=== PATIENT | female | born 1990 | race American Indian/Alaskan Native ===

== ENCOUNTER 2016-06-10 19:25 | Emergency (ER) | payer MEDICAID ==
[2016-06-10 19:48] VITALS: BP 136/81
--- NOTE | 2016-06-10 20:32 | Emergency Department Report ---
Chief Complaint: Vaginal Bleeding Stated Complaint: VAG DISCHARGE/SPOTTING/12WKS PREG Time Seen by Provider: 06/10/16 20:32 - HPI History of Present Illness: Patient here reports that she is 12 weeks and having vaginal spotting 2 weeks. She says she's having orange color collared vaginal discharge started this evening. Abdominal pain is one of the tendon located in her pelvic area. She says she called her [facility] which is Dr. Molina and was told to come to the emergency room. Menstrual period was 10.4 2016. [place] any nausea or vomiting. He reports lower abdominal pain started this evening. Denies any urinary burning but reports frequency. She says she has ultrasound in April at her [facility] and everything was fine. She says she was also diagnosed with Macrobid and she has not been taking it on a regular basis. - ROS Review of Systems: All systems are negative unless stated in HPI above. - Exam Vital Signs: Vital Signs 06/10/16 19:41 Temperature 98.6 F Pulse Rate 117 H Respiratory 20 Rate Blood Pressure 136/81 O2 Sat by Pulse 97 Oximetry Physical Exam: General: This is a 25-year-old female well-nourished well-developed in no acute distress. Abdomen: Tender to palpate the pelvic area. No guarding or rebound tenderness. Normal bowel sounds in all quadrants. CV: S1, S2. Tachycardic at 117. MSE screening note: Focused history and physical exam performed. Due to findings the following was ordered:see mdm ED Medical Decision Making - Medical Decision Making Medical decision making: Patient seen by provider in triage area. Appropriate protocol activated and patient to main ED to be seen by physician. ED Disposition for MSE Condition: Stable
[2016-06-10 21:42] LABS: Basophils % (Auto) 0.2 % (0.0-1.8); Eosinophils % (Auto) 0.7 % (0.0-4.3); Hematocrit 39.2 % (30.3-42.9); Hemoglobin 13.1 gm/dl (10.1-14.3); Mean Corpuscular HGB Conc 33 % (30-34); Mean Corpuscular Hemoglobin 30 pg (28-32); Mean Corpuscular Volume 90 fl (79-97); Platelet Count 224 K/mm3 (140-440); Red Blood Count 4.36 M/mm3 (3.65-5.03); Red Cell Distribution Width 13.1 % (13.2-15.2)
[2016-06-10 23:07] LABS: Bacteria,Urine 1+ /HPF (Negative); Bilirubin,Urine NEG (Negative); Blood,Urine SM (Negative); Ketones,Urine 80 mg/dL (Negative); Leukocyte Esterase,Urine LG (Negative); Mucus,Urine 3+ /HPF; Nitrite,Urine NEG (Negative); Urobilinogen,Urine < 2.0 mg/dL (<2.0)
--- NOTE | 2016-06-11 01:03 | Ultrasound Report ---
FINAL REPORT PROCEDURE: US OB < = 14 WEEKS FETUS TECHNIQUE: Real-time transabdominal sonography of the uterus, placenta, amniotic fluid, adnexa, and fetus was performed with image documentation. Measurements were obtained to determine age/size. M-mode Doppler was used to document heartbeat. CPT 95472 HISTORY: vaginal bleeding and abdominal pain COMPARISON: No prior studies are available for comparison. FINDINGS: CRL: 61.1 mm, which corresponds to a gestational age of: 12 weeks, 4 days. Yolk Sac: Normal. Embryonic Cardiac Activity: 153 beats per minute Gestational Sac: Normal. There is a subchorionic hematoma measuring 17 by 10 x 7 millimeters. Amniotic fluid: Normal. Cervix: Normal. Right Ovary: There is 18 millimeter cyst. Left Ovary: Not identified. Estimated delivery date: 12/20/2016 Uterus and adnexa: Normal. IMPRESSION: Single live intrauterine gestation at approximately 12 weeks and 4 days. EDC by US 12/20/2016
--- NOTE | 2016-06-11 01:04 | Ultrasound Report ---
FINAL REPORT PROCEDURE: US OB transvaginal TECHNIQUE: Real-time transvaginal sonography of the uterus, placenta, amniotic fluid, adnexa, and fetus was performed with image documentation. Measurements were obtained to determine age/size. M-mode Doppler was used to document heartbeat. HISTORY: vaginal bleeding and abdominal pain COMPARISON: No prior studies are available for comparison. FINDINGS: CRL: 61.1 mm, which corresponds to a gestational age of: 12 weeks, 4 days. Yolk Sac: Normal. Embryonic Cardiac Activity: 153 beats per minute Gestational Sac: Normal. There is a subchorionic hematoma measuring 17 by 10 x 7 millimeters. Amniotic fluid: Normal. Cervix: Normal. Right Ovary: There is 18 millimeter cyst. Left Ovary: Not identified. Estimated delivery date: 12/20/2016 Uterus and adnexa: Normal. IMPRESSION: Single live intrauterine gestation at approximately 12 weeks and 4 days. EDC by US 12/20/2016
--- NOTE | 2016-06-11 17:51 | ED Elopement Review ---
ED Pt Elopement review - Results review Lab results: Laboratory Tests 06/10/16 06/10/16 06/10/16 20:56 20:56 20:56 WBC 12.0 H RBC 4.36 Hgb 13.1 Hct 39.2 MCV 90 MCH 30 MCHC 33 RDW 13.1 L Plt Count 224 Lymph % (Auto) 24.2 [place] % (Auto) 5.4 Eos % (Auto) 0.7 Baso % (Auto) 0.2 Lymph # 2.9 [place] # 0.6 Eos # 0.1 Baso # 0.0 Seg Neutrophils % 69.5 Seg Neutrophils # 8.4 H HCG, Quant [id number] H Urine Color Urine Turbidity Urine pH Ur Specific [place] Urine Protein Urine Glucose (UA) Urine Ketones Urine Blood Urine Nitrite Urine Bilirubin Urine Urobilinogen Ur Leukocyte Esterase Urine WBC (Auto) Urine RBC (Auto) U Epithel Cells (Auto) Urine Bacteria (Auto) Urine Mucus Blood Type A POSITIVE Antibody Screen Negative 06/10/16 21:55 WBC RBC Hgb Hct MCV MCH MCHC RDW Plt Count Lymph % (Auto) [place] % (Auto) Eos % (Auto) Baso % (Auto) Lymph # [place] # Eos # Baso # Seg Neutrophils % Seg Neutrophils # HCG, Quant Urine Color Yellow Urine Turbidity Slightly-cloudy Urine pH 5.0 Ur Specific [place] 1.024 Urine Protein 30 mg/dl Urine Glucose (UA) Neg Urine Ketones 80 Urine Blood Sm Urine Nitrite Neg Urine Bilirubin Neg Urine Urobilinogen < 2.0 Ur Leukocyte Esterase Lg Urine WBC (Auto) 108.0 H Urine RBC (Auto) 18.0 U Epithel Cells (Auto) 9.0 Urine Bacteria (Auto) 1+ Urine Mucus 3+ Blood Type Antibody Screen - Call Back decision Pt Call Back Decision: No action required
== END 2016-06-11 01:59 | disposition left against medical advice (07) ==
LOC: ED 19:25
DX: O20.9 Hemorrhage in early pregnancy, unspecified (principal); Z3A.12 12 weeks gestation of pregnancy; Z53.21 Procedure and treatment not carried out due to patient leaving prior to being seen by health care provider
CPT/HCPCS: 36415; 76801; 76817; 81001; 84702; 85025; 86850; 86900; 86901

== ENCOUNTER 2016-06-18 21:25 | Emergency (ER) | payer MEDICAID ==
--- NOTE | 2016-06-18 23:28 | Emergency Department Report ---
Chief Complaint: Vaginal Bleeding Stated Complaint: VAG BLEEDING 13 WKS PREG Time Seen by Provider: 06/18/16 23:23 - HPI History of Present Illness: 25-year-old female is 13 weeks comes in for vaginal bleeding since 825 this evening. She does report she called the on-call doctor which was Dr. Rios and she instructed her to come to the emergency room. 2 para 1 - Exam Vital Signs: Vital Signs 06/18/16 21:33 Temperature 98.7 F Pulse Rate 114 H Respiratory 20 Rate Blood Pressure 145/83 O2 Sat by Pulse 100 Oximetry Physical Exam: Patient is alert and oriented 3 cardiovascular tachycardic, respiratory clear to auscultation abdomen nondistended tender to the suprapubic pelvic area MSE screening note: Focused history and physical exam performed. Due to findings the following was ordered: Triage vaginal bleeding protocol set in place ultrasound ordered patient be evaluated the main ER ED Disposition for MSE Condition: Stable
[2016-06-19 00:10] LABS: Basophils % (Auto) 0.2 % (0.0-1.8); Eosinophils % (Auto) 1.3 % (0.0-4.3); Hematocrit 38.3 % (30.3-42.9); Hemoglobin 13.1 gm/dl (10.1-14.3); Mean Corpuscular HGB Conc 34 % (30-34); Mean Corpuscular Hemoglobin 31 pg (28-32); Mean Corpuscular Volume 90 fl (79-97); Platelet Count 214 K/mm3 (140-440); Red Blood Count 4.28 M/mm3 (3.65-5.03); Red Cell Distribution Width 13.3 % (13.2-15.2); White Blood Count 10.6 K/mm3 (4.5-11.0)
[2016-06-19 00:59] LABS: Bacteria,Urine 1+ /HPF (Negative); Bilirubin,Urine NEG (Negative); Blood,Urine LG (Negative); Ketones,Urine NEG (Negative); Leukocyte Esterase,Urine LG (Negative); Mucus,Urine 3+ /HPF; Nitrite,Urine NEG (Negative); Protein,Urine <15 mg/dL mg/dL (Negative); Urobilinogen,Urine < 2.0 mg/dL (<2.0)
--- NOTE | 2016-06-19 01:19 | Ultrasound Report ---
FINAL REPORT PROCEDURE: US OB < = 14 WEEKS FETUS TECHNIQUE: Real-time transabdominal sonography of the uterus, placenta, amniotic fluid, adnexa, and fetus was performed with image documentation. Measurements were obtained to determine age/size. M-mode Doppler was used to document heartbeat. CPT 80827 HISTORY: 13 wks with vaginal bleeding and pain COMPARISON: 06/10/2016 FINDINGS: CRL: 77.2 mm, which corresponds to a gestational age of: 13 weeks, 5 days. Yolk Sac: Normal. Embryonic Cardiac Activity: 152 beats per minute Gestational Sac: Normal. Amniotic fluid: Normal. Cervix: Normal. Right Ovary: 4.1 x 3.9 x 2.4 centimeters. There is an 18 millimeter corpus luteal cyst. Left Ovary: 3.9 x 2.2 x 2.4 centimeters Estimated delivery date: 12/20/2016 Uterus and adnexa: Normal. IMPRESSION: Single live intrauterine gestation at approximately 13 weeks and 5 days. EDC by US 12/20/2016
--- NOTE | 2016-06-19 08:17 | Emergency Department Report ---
HPI - General Chief Complaint: Vaginal Bleeding Time Seen by Provider: 06/18/16 23:23 - HPI HPI: Chief complaint: Vaginal bleeding HPI: Patient states she is 13 weeks and had some spotting this morning. Patient denies any pain. Patient is 2 para 1. Patient states she was diagnosed with urinary tract infection but is not taking her nitrofurantoin. Mode of arrival: private car Source: Patient and nursing notes Began: Prior to admission Duration: Spotting Context: See above Quality: Pain-free Severity: 0 out of 10 Improved with: Nothing Worsened with: Nothing Associated signs and symptoms: Denies ED Past Medical Hx - Past Medical History Previous Medical History?: No - Surgical History Past Surgical History?: No ED Review of Systems ROS: Stated complaint: VAG BLEEDING 13 WKS PREG Other details as noted in HPI ROS Constitutional: No fever ENT: No uri symptoms Cardiovascular: No chest pain Respiratory: No sob or cough GI: No nausea vomiting or diarrhea : No dysuria frequency or urgency, Skin: No rash Neuro: No focal weakness or numbness Psych: No depression J[place]/lymph: No edema Physical Exam - Physical Exam Vital Signs: Vital Signs 06/18/16 06/19/16 21:33 02:44 Temperature 98.7 F 98.4 F Pulse Rate 114 H 80 Respiratory 20 18 Rate Blood Pressure 145/83 Blood Pressure 124/77 [Right] O2 Sat by Pulse 100 100 Oximetry Physical Exam: GENERAL: The patient is well-developed well-nourished . HEENT: Normocephalic. Atraumatic. Extraocular motions are intact. Patient has moist mucous membranes. NECK: Supple. No meningitic signs are noted. There is no adenopathy noted. CHEST/LUNGS: Clear to auscultation. There is no respiratory distress noted. HEART/CARDIOVASCULAR: Regular. There is no tachycardia. There is no gallop rub or murmur. ABDOMEN: Abdomen is soft, nontender. Patient has normal bowel sounds. There is no abdominal distention. SKIN: There is no rash. There is no edema. There is no diaphoresis. NEURO: The patient is awake, alert, and oriented. The patient is cooperative. The patient has no focal neurologic deficits. The patient has normal speech. MUSCULOSKELETAL: There is no tenderness or deformity. There is no limitation range of motion. There is no evidence of acute injury. ED Course Vital Signs 06/18/16 06/19/16 21:33 02:44 Temperature 98.7 F 98.4 F Pulse Rate 114 H 80 Respiratory 20 18 Rate Blood Pressure 145/83 Blood Pressure 124/77 [Right] O2 Sat by Pulse 100 100 Oximetry ED Medical Decision Making - Lab Data Result diagrams: 06/18/16 23:38 Laboratory Tests 06/18/16 06/19/16 23:38 Unknown HCG, Quant 26867 H Ur Specific [place] 1.024 Urine Protein <15 mg/dl Urine Blood Lg Ur Leukocyte Esterase Lg Urine WBC (Auto) 78.0 H Urine RBC (Auto) 10.0 U Epithel Cells (Auto) 9.0 Urine Bacteria (Auto) 1+ Laboratory Tests 06/18/16 23:38 Blood Type A POSITIVE - Radiology Data Radiology results: report reviewed (pelvic ultrasound shows a 13 week 5 day fetus with no abnormalities. Heart rate 152.) Critical care attestation.: If time is entered above; I have spent that time in minutes in the direct care of this critically ill patient, excluding procedure time. ED Disposition Clinical Impression: Threatened miscarriage Disposition: DISCHARGED TO HOME OR SELFCARE Is pt being admited?: No Does the pt Need Aspirin: No Condition: Stable Instructions: Threatened Miscarriage (ED), Urinary Tract Infection in Women (ED ) Additional Instructions: Taking your antibiotic as prescribed for your urinary tract infection Referrals: PRIMARY CARE, [Primary Care Provider] - 3-5 Days follow-up, your GEOMATICS PROFESSOR [Other] - 3-5 Days Time of Disposition: 08:24
[2016-06-19 08:35] VITALS: BP 120/78
== END 2016-06-19 08:30 | disposition home or self-care (01) ==
LOC: ED 21:25
DX: O20.0 Threatened abortion (principal); Z3A.13 13 weeks gestation of pregnancy
CPT/HCPCS: 36415; 76801; 81001; 84702; 85025; 86850; 86900; 86901